=== PATIENT | female | born 1935 | race Caucasian/White ===

== ENCOUNTER → 2020-06-26 | Outpatient (CLI) | payer OTHER ==
[2020-06-26 11:47] LABS: CREATININE 1.12 mg/dL (0.55-1.02); POTASSIUM 3.8 mmol/L (3.5-5.1)
[2020-06-26 11:53] LABS: FREE T4 0.93 ng/dl (0.76-1.46)
[2020-06-26 12:00] LABS: THYROID STIM HORMONE (HS) 1.11 uIU/ml (0.358-4.75)
[2020-06-26 12:14] LABS: PTH INTACT 93.3 pg/mL (18.5-88.0); VITAMIN D, 25-HYDROXY 56.7 ng/mL (30-100)
[2020-06-28 06:08] LABS: THYROTROPIN RECEPTOR AB <1.10 IU/L (0.00-1.75)
== END | disposition home or self-care (01) ==
LOC: LAB 10:53
PROVIDERS: Internal Medicine; ATTEND Internal Medicine Endocrinology, Diabetes & Metabolism
DX: E04.2 Nontoxic multinodular goiter (principal); E83.52 Hypercalcemia; R63.4 Abnormal weight loss

== ENCOUNTER → 2022-04-01 | Outpatient (CLI) | payer OTHER ==
[2022-04-01 10:24] LABS: CREATININE 1.18 mg/dL (0.55-1.02)
[2022-04-01 10:29] LABS: THYROID STIM HORMONE (HS) 1.68 uIU/ml (0.358-4.75)
[2022-04-01 11:07] LABS: VITAMIN D, 25-HYDROXY 36.2 ng/mL (30-100)
== END | disposition home or self-care (01) ==
LOC: LAB 09:23
PROVIDERS: ATTEND Internal Medicine Endocrinology, Diabetes & Metabolism
DX: E04.2 Nontoxic multinodular goiter (principal); E55.9 Vitamin D deficiency, unspecified; E83.52 Hypercalcemia